=== PATIENT | female | born 1975 | race Two or more races ===

== ENCOUNTER 2019-04-04 17:34 | Emergency (ER) | payer SELFPAY ==
[2019-04-04] MEDS ORDERED: NITROGLYCERIN OINT 2%, 1GM TP ONE ×2 (18:30→19:24)
[2019-04-04 18:36] LABS: BASOPHILS # (AUTO) 0.07 x10^3/uL (0-0.1); BASOPHILS % (AUTO) 1 % (0-1); EOSINOPHILS # (AUTO) 0.74 x10^3/uL (0-0.4); EOSINOPHILS % (AUTO) 9 % (1-7); LYMPHOCYTES # (AUTO) 2.08 x10^3/uL (1-3.4); LYMPHOCYTES % (AUTO) 25 % (22-44); MD NO; MEAN CORPUSCULAR HEMOGLOBIN 30.7 pg (27.0-34.8); MEAN CORPUSCULAR HGB CONC 33.7 g/dL (32.4-35.8); MEAN CORPUSCULAR VOLUME 91.2 fL (80-100); MEAN PLATELET VOLUME 7.5 fL (7.4-10.4); MONOCYTES # (AUTO) 0.59 x10^3/uL (0.2-0.8); MONOCYTES % (AUTO) 7 % (2-9); NEUTROPHILS # (AUTO) 4.76 x10^3/uL (1.8-6.8); NEUTROPHILS % (AUTO) 58 % (42-75); PLATELET COUNT 291 x10^3/uL (130-400); RED BLOOD COUNT 4.27 x10^6/uL (3.82-5.3); RED CELL DISTRIBUTION WIDTH 13.7 % (9.6-15.2)
[2019-04-04 18:41] LABS: ALANINE AMINOTRANSFERASE 34 U/L (12-78); ALBUMIN 3.6 g/dL (3.4-5.0); ANION GAP 4 mmol/L (5-15); CALCIUM 8.4 mg/dL (8.5-10.1); CHLORIDE 111 mmol/L (98-107); CREATININE 0.72 mg/dL (0.55-1.02)
[2019-04-04 18:45] LABS: ALKALINE PHOSPHATASE 74 U/L (45-117); BILIRUBIN,TOTAL 0.3 mg/dL (0.2-1.0); TOTAL PROTEIN 7.2 g/dL (6.4-8.2); TROPONIN I < 0.015 ng/mL (0.000-0.045)
[2019-04-04 19:29] VITALS: BP 110/55
--- NOTE | 2019-04-04 19:29 | NUR ---
MEDS ADMIN PER APR. PT RESTING COMFORTABLY ON GURNEY. MOOSE. PT STATES CP 04/28. FAMILY AT BEDSIDE.
--- NOTE | 2019-04-04 19:32 | NUR ---
ALL RESULTS ARE BACK AT THIS TIME. CHART UP FOR RECHECK.
--- NOTE | 2019-04-04 20:08 | NUR ---
MD AT BEDSIDE TO UPDATE PT ON POC.
== END 2019-04-05 03:30 | disposition home or self-care (01) ==
LOC: MERGE 17:34 → ED 04-05 03:10
DX: R07.2 Precordial pain (principal); M54.2 Cervicalgia
CPT/HCPCS: 36415; 71045; 80053; 83880; 84484; 85025; 93005; 99285

== ENCOUNTER 2019-11-15 01:36 | Emergency (ER) | payer OTHER ==
[~2019-11-15] VITALS: Ht 162.6 cm; Wt 71.0 kg
[2019-11-15 01:41] VITALS: BP 119/57
--- NOTE | 2019-11-15 01:51 | NUR ---
[place] SPEAKING ONLY. COFFEE BLENDER USED ([id number])
--- NOTE | 2019-11-15 02:52 | NUR ---
43/F pt reports chest pain radiating from under R breast to back x3 days. Hx of gastritis. Vomiting yellow liquid x2.
[2019-11-15 03:30] LABS: BASOPHILS # (AUTO) 0.02 x10^3/uL (0-0.1); BASOPHILS % (AUTO) 0 % (0-1); EOSINOPHILS # (AUTO) 0.67 x10^3/uL (0-0.4); EOSINOPHILS % (AUTO) 6 % (1-7); LYMPHOCYTES # (AUTO) 1.44 x10^3/uL (1-3.4); LYMPHOCYTES % (AUTO) 13 % (22-44); MD NO; MEAN CORPUSCULAR HEMOGLOBIN 29.6 pg (27.0-34.8); MEAN CORPUSCULAR HGB CONC 32.7 g/dL (32.4-35.8); MEAN PLATELET VOLUME 7.6 fL (7.4-10.4); MONOCYTES # (AUTO) 0.41 x10^3/uL (0.2-0.8); MONOCYTES % (AUTO) 4 % (2-9); NEUTROPHILS # (AUTO) 8.53 x10^3/uL (1.8-6.8); NEUTROPHILS % (AUTO) 77 % (42-75); PLATELET COUNT 308 x10^3/uL (130-400); RED BLOOD COUNT 4.64 x10^6/uL (3.82-5.3); RED CELL DISTRIBUTION WIDTH 13.7 % (9.6-15.2)
[2019-11-15] MEDS ORDERED: SODIUM CHLORIDE FLUSH 10ML SYR IVF ONE (03:30)
[2019-11-15] MEDS ORDERED: MAALOX/HYOSCYAMINE/LIDOCAINE 45 ML BTL ONE (03:30)
[2019-11-15] MEDS ORDERED: ONDANSETRON 2MG/ML, 2ML ONE (03:30)
[2019-11-15] MEDS ORDERED: ONDANSETRON 2MG/ML, 2ML IVPush ONE (03:30)
[2019-11-15] MEDS ORDERED: MORPHINE SULFATE 4 MG/ML, 1ML ONE (03:30)
[2019-11-15] MEDS ORDERED: MORPHINE SULFATE 4 MG/ML, 1ML IVPush PRN (03:30)
[2019-11-15] MEDS ORDERED: MAALOX/HYOSCYAMINE/LIDOCAINE 45 ML BTL PO ONE (03:30)
[2019-11-15 03:40] LABS: ALANINE AMINOTRANSFERASE 33 U/L (12-78); ALBUMIN 3.6 g/dL (3.4-5.0); ANION GAP 3 mmol/L (5-15); CALCIUM 8.4 mg/dL (8.5-10.1); CHLORIDE 112 mmol/L (98-107); CREATININE 0.81 mg/dL (0.55-1.02)
[2019-11-15 03:45] LABS: ALKALINE PHOSPHATASE 68 U/L (45-117); BILIRUBIN,TOTAL 0.3 mg/dL (0.2-1.0); TOTAL PROTEIN 7.4 g/dL (6.4-8.2)
--- NOTE | 2019-11-15 05:04 | NUR ---
Reviewed discharge with pt and pt verbalized understanding. VS stable. Ambulatory at discharge.
== END 2019-11-15 05:31 | disposition home or self-care (01) ==
LOC: ED 05:12
DX: K80.20 Calculus of gallbladder without cholecystitis without obstruction (principal); R11.2 Nausea with vomiting, unspecified; R10.13 Epigastric pain; R10.11 Right upper quadrant pain; I44.4 Left anterior fascicular block; F17.210 Nicotine dependence, cigarettes, uncomplicated
CPT/HCPCS: 36415; 71046; 76700; 80053; 83690; 84703; 85025; 93005; 96374; 96375; 99285; 99406; J2270; J2405

== ENCOUNTER 2020-07-17 02:47 | Emergency (ER) | payer BC, OTHER ==
[~2020-07-17] VITALS: Ht 170.2 cm; Wt 70.0 kg
--- NOTE | 2020-07-17 03:00 | NUR ---
PT CAME INTO ED THIS EVENING DUE TO ABDOMINAL PAIN, PT REPORTS PAIN IS ON THE RIGHT SIDE AND RADIATES INTO HER FLANK. PT REPORTS BEGINNING TO GET NAUSEATED AND VOMITTING THIS AM. PT NAD, RESTING ON [facility], [facility], PLACED ON SPO2/BP MONITORING. MAI OLIVAREZ AT BS FOR EVAL AND POC.
[2020-07-17] MEDS ORDERED: HYDROmorphone 1 MG/ML, 1ML INJ ONE (03:19)
[2020-07-17] MEDS ORDERED: ONDANSETRON 2MG/ML, 2ML ONE (03:19)
[2020-07-17] MEDS ORDERED: SODIUM CHLORIDE FLUSH 10ML SYR IVF ONE (03:30)
[2020-07-17] MEDS ORDERED: HYDROmorphone 1 MG/ML, 1ML INJ IV ONE (03:30)
[2020-07-17] MEDS ORDERED: ONDANSETRON 2MG/ML, 2ML IVPush ONE (03:30)
[2020-07-17 03:34] LABS: BASOPHILS % (AUTO) 1 % (0-1); EOSINOPHILS % (AUTO) 4 % (1-7); LYMPHOCYTES % (AUTO) 12 % (22-44); MEAN CORPUSCULAR HEMOGLOBIN 30.7 pg (27.0-34.8); MEAN CORPUSCULAR HGB CONC 34.1 g/dL (32.4-35.8); MEAN PLATELET VOLUME 7.1 fL (7.4-10.4); MONOCYTES % (AUTO) 5 % (2-9); NEUTROPHILS % (AUTO) 79 % (42-75); PLATELET COUNT 287 x10^3/uL (130-400); RED BLOOD COUNT 4.29 x10^6/uL (3.82-5.3)
--- NOTE | 2020-07-17 03:40 | NUR ---
PT IN US AT THIS TIME.
[2020-07-17 03:51] LABS: ALANINE AMINOTRANSFERASE 30 U/L (12-78); ALBUMIN 3.9 g/dL (3.4-5.0); ANION GAP 5 mmol/L (5-15); CALCIUM 8.4 mg/dL (8.5-10.1); CHLORIDE 108 mmol/L (98-107); CREATININE 0.71 mg/dL (0.55-1.02)
[2020-07-17 03:55] LABS: ALKALINE PHOSPHATASE 69 U/L (45-117); BILIRUBIN,TOTAL 0.3 mg/dL (0.2-1.0); TOTAL PROTEIN 7.4 g/dL (6.4-8.2)
[2020-07-17 04:08] LABS: MD NO
--- NOTE | 2020-07-17 04:18 | NUR ---
pt medicated per apr, pain decreased, Patient is resting comfortably in bed. Bed in lowest, rails engaged, call light on lap. Vital Signs within normal limits. waiting for us read. WCTM.
[2020-07-17 06:02] VITALS: BP 106/58
--- NOTE | 2020-07-17 06:02 | NUR ---
Patient/Caregiver given discharge instructions and they have confirmed that they understand the instructions. Patient ambulatory with steady gait. NAD, all questions answered appropriately, denies additional needs at this time. No personal belongings left in room after discharge.
== END 2020-07-17 06:07 | disposition home or self-care (01) ==
LOC: ED 05:27
DX: K80.20 Calculus of gallbladder without cholecystitis without obstruction (principal); R10.11 Right upper quadrant pain; R11.10 Vomiting, unspecified
CPT/HCPCS: 36415; 76700; 80053; 83690; 84703; 85025; 96374; 96375; 99284; J1170; J2405